=== PATIENT | female | born 1965 | race Two or more races ===

== ENCOUNTER → 2023-08-08 | Day surgery (SDC) | payer OTHER ==
[~2023-08-08] VITALS: Ht 157.5 cm; Wt 73.5 kg
[~2023-08-08] MED LIST: ZIAC 2.5-6.251 EACH PO
== END | disposition home or self-care (01) ==
LOC: ADM 08-05 07:45 → CIR.AMB 04:30
PROVIDERS: ATTEND Orthopaedic Surgery
DX: M75.122 Complete rotator cuff tear or rupture of left shoulder, not specified as traumatic (principal); M75.22 Bicipital tendinitis, left shoulder; M24.112 Other articular cartilage disorders, left shoulder; D21.12 Benign neoplasm of connective and other soft tissue of left upper limb, including shoulder; Z20.822 Contact with and (suspected) exposure to COVID-19; I10 Essential (primary) hypertension; E11.9 Type 2 diabetes mellitus without complications